=== PATIENT | female | born 1985 | race Caucasian/White ===

== ENCOUNTER 2017-07-14 09:25 | Inpatient (IN) | payer OTHER ==
[2017-07-14] MEDS ORDERED: Sodium Citrate/Citric Acid 15 ml Sol PO ONE (10:31)
[2017-07-14] MEDS ORDERED: cefOXitin 2 GM in Sodium Chloride 0.9% 100 ML IVPB ONE (10:31)
--- NOTE | 2017-07-14 10:53 | OBHP ---
Datetime: 07/14/2017 10:45 IP Adm Impression: Term, intrauterine IP Admit Plan: Admit to unit; Initiate Section protocol Admit Comment, IP Provider: @ 40.6 wks [place] private patient of Dr Rivera reports ctx pain that sta rted thismorning every 5 min 10 intesnity with increasing frequency , denies LOF< VB, +FM Pt had US 07/12/2017 US 9lb 2 ounces office rperot pt bedsie Ante: GDMA, [place] OB: P0 LAST TURNER: denies abnormla pap, fibroids, ovairan cyst, sti PMH: GDMA, [place] PSH: dnees FH:X non contribuotry SHX: negative etoh/tobacco/drugs MEDS :Metformin 500mg TID, Iron Daily NKDA A/P @ 40.6 wks GA GDMA with suspected macrosomia admit as per PMD for CxS npo, ivf admissin labs or/anestehsia aware preop anbitics abdominal prep you to graivty con totoc and efm blood glucose fingerstick plan as per Dr Rivera Pelvic Type - PN: Adequate Extremities - PN: Normal Abdomen - PN: Normal Back - PN: Normal Breast - PN: Normal Lungs - PN: Normal Heart - PN: Normal Thyroid - PN: Not Done Neurologic - PN: Not Done HEENT - PN: Normal General - PN: Normal Presentation-Admit: Vertex FHR - Baseline A Provider: 150 Membranes, Provider: Intact Contraction Comments Provider: irregular Gestation - Est Wks by US: 40.6 EGA AdmitDate IP: 40.6 Vital Signs Provider: Reviewed; Within Normal Limits IP Chief Complaint: Uterine contractions NICHD Variability Prov Fetus A: Moderate 6-25bpm FHR Category Provider Fetus A: Category I NICHD Decel Fetus A IP Provider: None Dilatation, Provider: 0 Effacement, Provider: 0 Station, Provider: -3 Genitourinary Exam: Normal DTRs - PN: Normal
--- NOTE | 2017-07-14 11:09 | OBADHP ---
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, fibroids, ovairan cyst, sti PMH: GDMA, [place] PSH: dnees FH:X non contribuotry SHX: negative etoh/tobacco/drugs MEDS :Metformin 500mg TID, Iron Daily NKDA A/P @ 40.6 wks GA GDMA with suspected macrosomia admit as per PMD for CxS npo, ivf admissin labs or/anestehsia aware preop anbitics abdominal prep you to graivty con totoc and efm blood glucose fingerstick plan as per Dr Rivera Pelvic Type - PN: Adequate Extremities - PN: Normal Abdomen - PN: Normal Back - PN: Normal Breast - PN: Normal Lungs - PN: Normal Heart - PN: Normal Thyroid - PN: Not Done Neurologic - PN: Not Done HEENT - PN: Normal General - PN: Normal Presentation-Admit: Vertex FHR - Baseline A Provider: 150 Membranes, Provider: Intact Contraction Comments Provider: irregular Gestation - Est Wks by US: 40.6 Vital Signs Provider: Reviewed; Within Normal Limits IP Chief Complaint: Uterine contractions NICHD Variability Prov Fetus A: Moderate 6-25bpm FHR Category Provider Fetus A: Category I NICHD Decel Fetus A IP Provider: None Dilatation, Provider: 0 Effacement, Provider: 0 Station, Provider: -3 Genitourinary Exam: Normal DTRs - PN: Normal EGA AdmitDate IP: 40.6 IP Adm Impression: Term, intrauterine IP Admit Plan: Admit to unit; Initiate Section protocol
[2017-07-14 11:34] LABS: BASO % 0.2 % (0.0-2.0); EOS # 0.1 K/uL (0.0-0.7); EOS % 1.8 % (0.0-4.0); HEMOGLOBIN 12.1 g/dL (11.0-16.0); LYMPH # 1.2 K/uL (1.0-4.3); MEAN CORPUSCULAR HGB CONC 34.2 g/dL (33.0-37.0); MONO # 0.5 K/uL (0.0-0.8); MONO % 7.1 % (0.0-10.0); NEUT # 5.5 K/uL (1.8-7.0); NEUT % 74.9 % (50.0-75.0); NRBC % 0.2 % (0.0-2.0); RBC 4.33 Mil/uL (3.80-5.20); RED CELL DISTRIBUTION WIDTH 16.9 % (11.5-14.5); WHITE BLOOD COUNT 7.4 K/uL (4.8-10.8)
[2017-07-14 11:49] LABS: SQUAMOUS EPITHIAL 5 /hpf (0-5); URINE BILIRUBIN NEGATIVE (NEGATIVE); URINE BLOOD NEGATIVE (NEGATIVE); URINE CLARITY Clear (Clear); URINE COLOR Yellow (YELLOW); URINE GLUCOSE (UA) NORMAL (Normal); URINE LEUKOCYTE ESTERASE NEG Leu/uL (Negative); URINE PROTEIN NEGATIVE (NEGATIVE); URINE UROBILINOGEN NORMAL mg/dL (0.2-1.0)
[2017-07-14 11:51] LABS: AST/SGOT 26 U/L (14-36); BLOOD UREA NITROGEN 8 mg/dL (7-17); CALCIUM 9.4 mg/dl (8.6-10.4); GFR AFRICAN-AMERICAN > 60; GFR NON-AFRICAN AMERICAN > 60
[2017-07-14 12:26] LABS: HEPATITIS B SURFACE AG Negative (NEGATIVE)
[2017-07-14] MEDS ORDERED: Sodium Citrate/Citric Acid 15 ml Sol ONE (12:59)
[2017-07-14] MEDS ORDERED: Hydrocodone/Acetaminophen 5 mg /300 mg Tab PO PRN (14:13)
[2017-07-14] MEDS ORDERED: Oxytocin 30 UNIT 30 UNITS/500 ML BAG IV SCH (14:15)
[2017-07-14] MEDS ORDERED: Propofol 10 mg/ml Inj (20 ML) ONE (14:17)
[2017-07-14] MEDS ORDERED: ePHEDrine 50 mg/ml Inj ONE (14:17)
[2017-07-14] MEDS ORDERED: Oxytocin 20 units in LR 2,000 ML IV ONE (14:40)
[2017-07-14] MEDS ORDERED: Oxycodone/Acetaminophen 5/325 mg Tab PO PRN (16:17)
[2017-07-14] MEDS ORDERED: Lactated Ringer's 1,000 ML IV SCH (16:30)
[2017-07-14] MEDS ORDERED: DiphenhydrAMINE 50 mg/ml Inj IVP PRN (17:29)
[2017-07-14] MEDS: ceFAZolin IV 1 gm in Dextrose 1 GM/50 ML BAG IVPB SCH (22:30)
[2017-07-15] MEDS: ceFAZolin IV 1 gm in Dextrose 1 GM/50 ML BAG IVPB SCH ×4 (05:37→16:39)
[2017-07-15] MEDS: Oxycodone/Acetaminophen 5/325 mg Tab PO PRN ×3 (08:20→19:46)
[2017-07-15 08:24] LABS: BASO % 0.2 % (0.0-2.0); EOS # 0.1 K/uL (0.0-0.7); EOS % 0.9 % (0.0-4.0); HEMOGLOBIN 10.4 g/dL (11.0-16.0); LYMPH # 1.1 K/uL (1.0-4.3); LYMPH % 9.5 % (20.0-40.0); MEAN CELL VOLUME 82.5 fL (81.0-99.0); MEAN CORPUSCULAR HEMOGLOBIN 28.3 pg (27.0-31.0); MEAN CORPUSCULAR HGB CONC 34.3 g/dL (33.0-37.0); MONO # 0.7 K/uL (0.0-0.8); MONO % 5.7 % (0.0-10.0); NEUT # 9.9 K/uL (1.8-7.0); NEUT % 83.7 % (50.0-75.0); PLATELET COUNT 226 K/uL (130-400); RBC 3.67 Mil/uL (3.80-5.20); RED CELL DISTRIBUTION WIDTH 16.5 % (11.5-14.5)
[2017-07-15 08:33] LABS: WHITE BLOOD COUNT 11.8 K/uL (4.8-10.8)
[2017-07-15 09:12] LABS: ANISOCYTOSIS SLIGHT; EOSINOPHIL 1 % (0-4); LYMPHOCYTE 6 % (20-40); MONOCYTE 3 % (0-10); NEUTROPHIL 90 % (50-75); PLATELET ESTIMATE NORMAL (NORMAL); TOTAL CELLS COUNTED 100
[2017-07-15 09:13] LABS: HYPOCHROMIC SLIGHT; POLYCHROMIC SLIGHT
[2017-07-15] MEDS: Simethicone 80 mg Chewtab PO SCH ×4 (09:44→21:43)
[2017-07-15] MEDS ORDERED: ceFAZolin IV 1 gm in Dextrose 1 GM/50 ML BAG IVPB ONE (12:30)
--- NOTE | 2017-07-15 14:56 | OBDS ---
DELIVERY PERSONNEL Delivery Doctor: Jeremie Rivera MD Scrub Nurse: Yamileth Ca OBT Industrial Controls Technician: Beatrice Garza RN Anesthesiologist: DR JORDAN Resident: DR HARRIS MATERNAL INFORMATION Delivery Anesthesia: Spinal Medications in Delivery: PITOCIN 20UNITS IN NS 1000ML Estimated Blood Loss (ml): 800 Placenta Cultured: No Maternal Complications: Precipitous Labor (<3hrs) Provider Comments: Cephalopelvic Disproportion 41-42 Weeks Suspected Macrosomia, EFW 9Lb 2Oz LABOR SUMMARY EDC: 07/08/2017 00:00 No. Babies in Womb: 1 Attempted: No Labor Anesthesia: None LABOR INFORMATION Reason for Induction: Not Applicable Oxytocin: N/A Group B Beta Strep: Negative Reason Steroids Not Administered: Not Applicable MEMBRANES Membranes Rupture Method: Artificial Rupture of Membranes: 07/14/2017 15:08 Length of Rupture (hrs): 0.03 Amniotic Fluid Color: Clear Amniotic Fluid Amount: Moderate Amniotic Fluid Odor: Normal STAGES OF LABOR Stage 3 hrs: 0 Stage 3 min: 2 CSECTION DELIVERY Primary Indication: Other Other Primary Indication: SUSPECTED MACROSOMIA Secondary Indication: Other Other Secondary Indication: GDM CSection Urgency: Elective CSection Incidence: Primary Labor: No Labor Elective: Elective CSection Incision: Lower Uterine Transverse BABY A INFORMATION Delivery Date/Time: 07/14/2017 15:10 Method of Delivery: Born in Route : No : N/A Forceps: N/A Vacuum Extraction: N/A Shoulder Dystocia : No SHOULDER DYSTOCIA BABY A Delivery Date/Time: 07/14/2017 15:10 PRESENTATION/POSITION BABY A Presentation: Cephalic Cephalic Presentation: Vertex Breech Presentation: N/A PLACENTA INFORMATION BABY A Placenta Delivery Time : 07/14/2017 15:12 Placenta Method of Delivery: Manual Removal Placenta Status: Delivered SCORES BABY A Heart Rate 1 min: >100 bpm Resp Effort 1 min: Good Cry Reflex Irritability 1 min: Cough or Sneeze or Pulls Away Muscle Tone 1 min: Active Motion Color 1 min: Body [employer], Extremities Blue SCORE 1 MIN: 9 Heart Rate 5 min: >100 bpm Resp Effort 5 min: Good Cry Reflex Irritability 5 min: Cough or Sneeze or Pulls Away Muscle Tone 5 min: Active Motion Color 5 min: Body [employer], Extremities Blue SCORE 5 MIN: 9 INFORMATION BABY A Gestational Age at Delivery: 41.0 Gestational Status: Term Infant Outcome : Liveborn Infant Condition : Stable Sex: Female IDENTIFICATION/MEDS BABY A ID Band Number: [id number] ID Band Location: Left Leg; Left Arm Sensor Applied: Yes Sensor Number: [id number] Sensor Location : Cord Clamp WEIGHT/LENGTH BABY A Birthweight (gms): 3995 Infant Weight (lb): 8 Weight (oz): 13 Infant Length Inches: 19.50 Length cms: 49.5 CORD INFORMATION BABY A No. Cord Vessels: 3 Nuchal Cord : N/A Nuchal Cord Other: n/a True Knot: 0 Cord Blood Taken: Yes Infant Suction: Mouth; Nose ASSESSMENT BABY A Infant Complications: None Physical Findings at Delivery: Within Normal Limits Respirations: Appears Normal Audiovisual Tech/ALS Called : No Infant Care By: DR HEBERT/ Mirna SPENCER Transferred To: Nursery
--- NOTE | 2017-07-15 14:57 | OBDS ---
DELIVERY PERSONNEL Delivery Doctor: Jeremie Rivera MD Scrub Nurse: Yamileth Ca OBT Maintenance Service Supervisor: Beatrice Garza RN Anesthesiologist: DR JORDAN Resident: DR HARRIS MATERNAL INFORMATION Delivery Anesthesia: Spinal Medications in Delivery: PITOCIN 20UNITS IN NS 1000ML Estimated Blood Loss (ml): 800 Placenta Cultured: No Maternal Complications: Precipitous Labor (<3hrs) Provider Comments: Cephalopelvic Disproportion 41-42 Weeks Suspected Macrosomia, EFW 9Lb 2Oz LABOR SUMMARY EDC: 07/08/2017 00:00 EDC: 07/08/2017 00:00 No. Babies in Womb: 1 Attempted: No Labor Anesthesia: None LABOR INFORMATION Reason for Induction: Not Applicable Oxytocin: N/A Group B Beta Strep: Negative Reason Steroids Not Administered: Not Applicable MEMBRANES Membranes Rupture Method: Artificial Rupture of Membranes: 07/14/2017 15:08 Length of Rupture (hrs): 0.03 Amniotic Fluid Color: Clear Amniotic Fluid Amount: Moderate Amniotic Fluid Odor: Normal STAGES OF LABOR Stage 3 hrs: 0 Stage 3 min: 2 CSECTION DELIVERY Primary Indication: Other Other Primary Indication: SUSPECTED MACROSOMIA Secondary Indication: Other Other Secondary Indication: GDM CSection Urgency: Elective CSection Incidence: Primary Labor: No Labor Elective: Elective CSection Incision: Lower Uterine Transverse BABY A INFORMATION Delivery Date/Time: 07/14/2017 15:10 Method of Delivery: Born in Route : No : N/A Forceps: N/A Vacuum Extraction: N/A Shoulder Dystocia : No SHOULDER DYSTOCIA BABY A Delivery Date/Time: 07/14/2017 15:10 PRESENTATION/POSITION BABY A Presentation: Cephalic Cephalic Presentation: Vertex Breech Presentation: N/A PLACENTA INFORMATION BABY A Placenta Delivery Time : 07/14/2017 15:12 Placenta Method of Delivery: Manual Removal Placenta Status: Delivered SCORES BABY A Heart Rate 1 min: >100 bpm Resp Effort 1 min: Good Cry Reflex Irritability 1 min: Cough or Sneeze or Pulls Away Muscle Tone 1 min: Active Motion Color 1 min: Body [place], Extremities Blue SCORE 1 MIN: 9 Heart Rate 5 min: >100 bpm Resp Effort 5 min: Good Cry Reflex Irritability 5 min: Cough or Sneeze or Pulls Away Muscle Tone 5 min: Active Motion Color 5 min: Body [place], Extremities Blue SCORE 5 MIN: 9 INFORMATION BABY A Gestational Age at Delivery: 41.0 Gestational Status: Term Outcome : Liveborn Condition : Stable Sex: Female IDENTIFICATION/MEDS BABY A ID Band Number: [id number] ID Band Location: Left Leg; Left Arm Sensor Applied: Yes Sensor Number: [id number] Sensor Location : Cord Clamp WEIGHT/LENGTH BABY A Birthweight (gms): 3995 Weight (lb): 8 Infant Weight (oz): 13 Length Inches: 19.50 Infant Length cms: 49.5 CORD INFORMATION BABY A No. Cord Vessels: 3 Nuchal Cord : N/A Nuchal Cord Other: n/a True Knot: 0 Cord Blood Taken: Yes Infant Suction: Mouth; Nose ASSESSMENT BABY A Infant Complications: None Physical Findings at Delivery: Within Normal Limits Infant Respirations: Appears Normal Consulting Utility Forester/ALS Called : No Infant Care By: DR HEBERT/ Mirna SPENCER Transferred To: [facility]
--- NOTE | 2017-07-15 14:58 | OBPPN ---
Datetime: 07/15/2017 14:56 PP Pain Prov: Within normal limits PP Breasts Prov: Normal PP Heart Prov: Normal PP Lungs Prov: Normal PP Abdomen/Uterus Prov: Normal PP Lochia Prov: Normal PP Vulva/Perineum Prov: Normal PP CVA Tenderness Prov: Normal PP Extremities Prov: Normal PP C/S Incision Prov: Normal PP Progress Prov: Not Applicable PP Impression Prov: Normal progression PP Plan Prov: Continue present management IP PP Procedures: None
[2017-07-15] MEDS ORDERED: Bisacodyl 5mg EC Tab PO ONE (16:17)
[2017-07-16] MEDS: Oxycodone/Acetaminophen 5/325 mg Tab PO PRN ×3 (04:25→23:43)
[2017-07-16] MEDS: Simethicone 80 mg Chewtab PO SCH ×4 (09:18→21:47)
[2017-07-17] MEDS: Simethicone 80 mg Chewtab PO SCH (09:28)
--- NOTE | 2017-07-17 11:14 | OBPPN ---
Datetime: 07/17/2017 11:12 PP Pain Prov: Within normal limits PP Breasts Prov: Normal PP Heart Prov: Normal PP Lungs Prov: Normal PP Abdomen/Uterus Prov: Normal PP Lochia Prov: Normal PP Vulva/Perineum Prov: Normal PP CVA Tenderness Prov: Normal PP Extremities Prov: Normal PP C/S Incision Prov: Normal PP Progress Prov: Normal PP Impression Prov: Normal progression PP Plan Prov: Discharge PP Progress Note Prov: POD #3 No C/O VS Stable Abdomen Soft Wound Clean P: Home today IP PP Procedures: None
--- NOTE | 2017-07-17 11:17 | OBDCSUM ---
Datetime: 07/17/2017 11:14 Discharged to, Provider: Home Follow up at, Provider: Dr. Rivera Disch Instr Activity: Normal activity Disch Instr Diet: Regular Discharge Instructions, Provider: Routine instructions given Discharge Diagnosis, Provider: Postterm Delivery Follow up in weeks, Provider: 1 week Disch Referrals: None Contraception discussed, Prov: Yes Discharge Diagnosis Prov Other: C P D
[2017-07-17 17:10] VITALS: BP 109/71; PULSE 81; RESP 20; TEMP 97; O2SAT 100
== END 2017-07-17 13:05 | disposition home or self-care (01) | DRG 766 ==
LOC: C.EROB 09:25 → C.4D 10:10 → C.4M 07-15 00:45
PROVIDERS: ADMIT Obstetrics & Gynecology Gynecology; ATTEND Obstetrics & Gynecology Gynecology
PROC: 10D00Z1 Extraction of Products of Conception, Low, Open Approach (ICD-10-PCS; principal; 2017-07-14)
DX: O33.9 Maternal care for disproportion, unspecified (principal); O24.429 Gestational diabetes mellitus in childbirth, unspecified control; O48.0 Post-term pregnancy; O62.3 Precipitate labor; Z3A.42 42 weeks gestation of pregnancy; Z37.0 Single live birth